=== PATIENT | female | born 1995 | race Caucasian/White ===

== ENCOUNTER 2018-05-30 17:32 | Emergency (ER) | payer OTHER ==
[2018-05-30 19:12] LABS: ABSOLUTE BASOPHIL COUNT 0 /CUMM (0.0-0.2); ABSOLUTE EOSINOPHIL COUNT 0 /CUMM (0.0-0.7); ABSOLUTE GRANULOCYTE CT 7.5 /CUMM (1.4-6.5); ABSOLUTE LYMPH COUNT 1.1 /CUMM (1.2-3.4); ABSOLUTE MONOCYTE COUNT 0.7 /CUMM (0.10-0.60); BASOPHIL % 0.4 % (0.0-2.0); EOSINOPHIL % 0.3 % (0-5); GRANULOCYTE % 79.9 % (42.2-75.2); HEMATOCRIT 37.5 % (37-47); MEAN CORPUSCULAR HGB 29.5 PG (27.0-31.0); MEAN CORPUSCULAR HGB CONC 33.8 G/DL (33.0-37.0); MEAN CORPUSCULAR VOLUME 87.2 FL (81.0-99.0); MEAN PLATELET VOLUME 8.5 FL (7.4-10.4); PLATELET COUNT 179 /CUMM (130-400); RBC DISTRIBUTION WIDTH 13.1 % (11.5-14.5); WHITE BLOOD CELL COUNT 9.4 /CUMM (4.8-10.8)
--- NOTE | 2018-05-30 21:04 | CT SCAN REPORT ---
EXAMINATION: CT ABDOMEN AND PELVIS WITH CONTRAST CLINICAL INFORMATION: Right lower quadrant pain. Concern for appendicitis. COMPARISON: None TECHNIQUE: Multidetector volumetric imaging was performed of the abdomen and pelvis following IV administration of 95 mL of Optiray 320 intravenous contrast. Sagittal and coronal reformatted images were obtained on the technologist's workstation. DLP: 328 mGy-cm FINDINGS: Visualized lung bases are well aerated. The liver demonstrates minimal size, contour and attenuation. No intrahepatic biliary ductal dilatation. The gallbladder is decompressed and therefore not accurately evaluated. The pancreas, spleen and adrenal glands are unremarkable. The kidneys demonstrate symmetric enhancement without hydronephrosis. Normal caliber loops of small and large bowel. The appendix is normal in caliber without focal periappendiceal stranding (best appreciated on coronal image 44/82). Tiny fat-containing umbilical hernia. The bladder is underdistended and therefore not accurately characterize. IUD in expected orientation within the pelvis. A small amount of free pelvic fluid, nonspecific but potentially physiologic. No gross pelvic lymphadenopathy. No acute osseous abnormality. IMPRESSION: No CT evidence for acute intra-abdominal or pelvic pathology. The appendix is normal.
--- NOTE | 2018-05-30 22:02 | ED GENERAL ADULT ---
History of Present Illness General Chief Complaint: Fever Stated Complaint: FEVER, ABD PAIN Source: patient Exam Limitations: no limitations Vital Signs & Intake/Output Vital Signs & Intake/Output Vital Signs Date Time Temp Pulse Resp B/P B/P Pulse O2 O2 Flow FiO2 Mean Ox Delivery Rate 05/31 0000 99.0 90 18 108/62 98 Room Air 05/30 2055 99.4 91 18 101/60 97 Room Air 05/30 1859 Room Air 05/30 1755 101.7 120 16 101/72 97 Room Air ED Intake and Output 05/31 0000 05/30 1200 Intake Total 1000 Output Total Balance 1000 Intake, IV 1000 Allergies Coded Allergies: doxycycline (Intermediate, ITCHING 05/30/18) hydromorphone (From DILAUDID) (Intermediate, GI DISTRESS 05/30/18) Reconcile Medications Ciprofloxacin HCl (Cipro) 500 MG TABLET 1 TAB PO BID UTI Dicyclomine HCl 20 MG TABLET 1 TAB PO Q6-8P PRN abd pain Naproxen (Naprosyn) 500 MG TABLET 1 TAB PO BID PRN abd pain Ondansetron (Zofran Odt) 4 MG TAB.RAPDIS 1 TAB SL TID PRN nausea Triage Note: PT REFERRED TO ED FROM [facility] FOR EVAL OF RLQ PAIN, FEVER, NAUSEA AND BODY ACHES. STILL HAS APPENDIX. STATES RLQ PAIN THERE FOR PAST WEEK, BUT SEVERE LAST NIGHT. PULSE 120 IN TRIAGE, TEMP 101.7 TYMPANIC. Triage Nurses Notes Reviewed? yes Onset: Gradual Duration: day(s): Timing: constant : No Patient currently breastfeeds: No HPI: 22-year-old female with a history of gastroparesis presenting with right lower quadrant pain 6 days. Patient reports sharp right lower quadrant pain that radiates to her abdomen. Patient states that the pain was initially intermittent, but has been constant and severe since last night. She has been febrile with a T-max of 101.7F. Pain has been associated with nausea and vomiting. She also notes that she has had urinary frequency/urgency, but no dysuria or hematuria. No vaginal bleeding or discharge. Denies diarrhea, constipation, melena, hematochezia. She was seen and evaluated at an urgent care earlier today, referred in for rule out appendicitis. (Susan GUAJARDO,Brianda) Past History Travel History Traveled to [place] past 21 day No Medical History Any Pertinent Medical History? see below for history Respiratory: SEASONAL ALLERGIES Surgical History Surgical History: non-contributory Psychosocial History What is your primary language Occitan Tobacco Use: Never used Family History Hx Contributory? No (Brianda Saavedra) Review of Systems Review of Systems Constitutional: Reports: see HPI. EENTM: Reports: no symptoms. Respiratory: Reports: no symptoms. Cardiovascular: Reports: no symptoms. GI: Reports: see HPI. Genitourinary: Reports: see HPI. Musculoskeletal: Reports: no symptoms. Skin: Reports: no symptoms. Neurological/Psychological: Reports: no symptoms. Hematologic/Endocrine: Reports: no symptoms. Immunologic/Allergic: Reports: no symptoms. All Other Systems: Reviewed and Negative (Brianda Saavedra) Physical Exam Physical Exam General Appearance: well developed/nourished, no apparent distress, alert, awake Comments: Gen.: Well-nourished, well-developed, no acute distress, nontoxic-appearing Head: Normocephalic, atraumatic. Eyes: Normal inspection bilaterally Ears: Normal inspection bilaterally Nose: Normal inspection Neck: Normal inspection Lungs: clear to auscultation bilaterally, normnal breath sounds Heart: regular rate and rhythm Abdomen: soft, nondistended, normal bowel sounds, tender to palpation across the right lower quadrant, right upper quadrant, and epigastrium, no rebound or guarding Back: No CVA tenderness Extremities: Normal inspection Neurologic: alert and oriented x3, steady gait Skin: warm and dry Psychiatric: Normal mood and affect, no apparent delusions or hallucinations, behavior appropriate Core Measures ACS in differential dx? No CVA/TIA Diagnosis: No Sepsis Present: No Sepsis Focused Exam Completed? No (Brianda Saavedra) Progress Differential Diagnoses I considered the following diagnoses in my evaluation of the patient: [Gastritis versus GERD versus biliary versus appendicitis versus UTI versus pyelonephritis versus cervicitis versus PID] Plan of Care: Orders Procedure Date/time Status Add-on Test (ER Only) 05/30 2014 Active CULTURE,URINE 05/30 192 Active C-REACTIVE PROTEIN 05/30 182 Complete URINE 05/30 180 Complete URINALYSIS 05/30 180 Complete LACTIC ACID 05/30 180 Complete COMPREHENSIVE METABOLIC PANEL 05/30 180 Complete CBC WITHOUT DIFFERENTIAL 05/30 180 Complete Laboratory Tests 05/30/18 2103: Lactic Acid Cancelled 05/30/181919: Urine Color YEL, Urine Clarity CLEAR, Urine pH 6.0, Ur Specific [place] 1.025, Urine Protein NEG, Urine Ketones 15 H, Urine Nitrite NEG, Urine Bilirubin NEG, Urine Urobilinogen 0.2, Ur Leukocyte Esterase SMALL H, Ur Microscopic SEDIMENT EXAMINED, Urine RBC RARE, Urine WBC 5-10 H, Ur Epithelial Cells FEW, Urine Bacteria MOD H, Urine Mucus FEW, Urine Hemoglobin NEG, Urine Glucose NEG, Urine Test NEGATIVE 05/30/18 1825: Anion Gap 8, Estimated GFR > 60, BUN/Creatinine Ratio 18.6, Glucose 91, Lactic Acid 0.6 L, Calcium 9.0, Total Bilirubin 0.4, AST 16, ALT 32, Alkaline Phosphatase 62, C-Reactive Prot, Quant 4.8 H, Total Protein 6.7, Albumin 3.8, Globulin 2.9, Albumin/Globulin Ratio 1.3, CBC w Diff NO MAN DIFF REQ, RBC 4.30, MCV 87.2, MCH 29.5, MCHC 33.8, RDW 13.1, MPV 8.5, Gran % 79.9 H, Lymphocytes % 11.8 L, Monocytes % 7.6, Eosinophils % 0.3, Basophils % 0.4, Absolute Granulocytes 7.5 H, Absolute Lymphocytes 1.1 L, Absolute Monocytes 0.7 H, Absolute Eosinophils 0, Absolute Basophils 0 Microbiology 05/30 1920 URINE ROUT: Urine Culture - RES GRAM NEGATIVE RODS CT abdomen and pelvis IMPRESSION: No CT evidence for acute intra-abdominal or pelvic pathology. The appendix is normal. Labs show elevation in CRP to 4.8, otherwise unremarkable. WBC and lactic acid are within normal limits. UA is equivocal for infection, there are some WBCs and bacteria, sample was a clean-catch. Given the patient is having urinary urgency and frequency will cover for UTI. Given that she has been febrile will cover for pyelonephritis, although she has had no CVA tenderness. Will cover with Rx ciprofloxacin. Patient's parents expressed continued concern for appendicitis. 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 At this time surgery does not feel the patient's exam is consistent with appendicitis, additionally she has a negative CT and normal WBC to further exclude the diagnosis of appendicitis. It is possible that she may have underlying IBS with acute viral syndrome such as viral gastritis. Will give Rx Zofran, naproxen, and Bentyl. She is tolerating p.o. intake after Zofran without difficulty. Given contact information to follow-up with GI. Counseled on supportive care and strict return precautions. Initial ED EKG: none (Brianda Saavedra) Departure Departure Disposition: HOME OR SELF CARE Condition: Stable Clinical Impression Primary Impression: Abdominal pain Secondary Impressions: Fever, UTI (urinary tract infection) Referrals: Alicia Okeefe MD Patient Has No Primary Care Dr (PCP/Family) Additional Instructions: Take ciprofloxacin as prescribed. He will receive a phone call if your urine culture has positive growth. If you do not receive a phone call in 2-3 days you should call the emergency department at [phone] to inquire about the results, if the culture is negative you should stop her antibiotics. Use Zofran as needed for nausea. Use dicyclomine and naproxen as needed for abdominal pain. Follow-up with a primary care provider and gastroenterology for further evaluation. Return to the emergency department for any new or worsening symptoms. Departure Forms: Customer Survey General Discharge Information Prescriptions: Current Visit Scripts Ondansetron (Zofran Odt) 1 TAB SL TID PRN nausea #20 TAB Naproxen (Naprosyn) 1 TAB PO BID PRN abd pain #60 TAB Dicyclomine HCl 1 TAB PO Q6-8P PRN abd pain #30 TAB Ciprofloxacin HCl (Cipro) 1 TAB PO BID #14 TAB (Brianda Saavedra) PA/CUT OFF MACHINE OPERATOR Co-Sign Statement Statement: ED Attending supervision documentation- [x] I saw and evaluated the patient. I have also reviewed all the pertinent lab results and diagnostic results. I agree with the findings and the plan of care as documented in the PA's/CUT OFF MACHINE OPERATOR's documentation. [x] I have reviewed the ED Record and agree with the PA's/CUT OFF MACHINE OPERATOR's documentation. [] Additions or exceptions (if any) to the PAs/CUT OFF MACHINE OPERATOR's note and plan are summarized below: [] (Jacobo Daniels DO) Critical Care Note Critical Care Note Critical Care Time: non-applicable (Brianda Saavedra)
--- NOTE | 2018-05-30 22:56 | Cons- General Surgery ---
Tresa Welsh 05/30/18 2255: General Information and HPI Consulting Request Date of Consult: 05/30/18 Requested By: CASANDRA Davis Reason for Consult: rlq pain History of Present Illness: 22yoF presents to ED with c.o rlq abdominal pain worsening over last 8-9days, though acutely worsened this morning. Has had similar pain intermittently over last 6 years, and has had numerous MD visits for this (GI, Surgery, [facility], etc). [place] sharp pain at rlq at 2am this am, and though improved throughout the day, has not gone away. Denies emesis, though admits to some nausea. Tmax of 101.7. Last meal this pm, last BM this am, passing flatus regularly. Denies cp/sob. Allergies/Medications Allergies: Coded Allergies: doxycycline (Intermediate, ITCHING 05/30/18) hydromorphone (From DILAUDID) (Intermediate, GI DISTRESS 05/30/18) Past History Medical History Respiratory: SEASONAL ALLERGIES Gastrointestinal: chronic undiagnosed abd pain Surgical History Pertinent Surgical History: tonsillectomy, wisdom teeth extraction, axillary cyst excision Exam & Diagnostic Data Vital Signs and I&O Vital Signs Date Time Temp Pulse Resp B/P B/P Pulse O2 O2 Flow FiO2 Mean Ox Delivery Rate 05/30 2055 99.4 91 18 101/60 97 Room Air 05/30 1859 Room Air 05/30 1755 101.7 120 16 101/72 97 Room Air Physical Exam: gen- nad card-s1s2 rrr pulm-ctab abd- generalized ttp thoughout, no r/g, normoactive bs throughout ect- calves soft nt Last 24 Hours of Labs: Laboratory Tests 05/30 05/30 2103 1920 Chemistry Lactic Acid Cancelled Urines Urine Color (YEL,AMB,STR) YEL Urine Clarity (CLEAR) CLEAR Urine pH (5.0 - 8.0) 6.0 Ur Specific [place] (1.001 - 1.035) 1.025 Urine Protein (NEG,<30 MG/DL) NEG Urine Ketones (NEG) 15 H Urine Nitrite (NEG) NEG Urine Bilirubin (NEG) NEG Urine Urobilinogen (0.1 - 1.0 EU/dl) 0.2 Ur Leukocyte Esterase (NEG) SMALL H Ur Microscopic SEDIMENT EXAMINED Urine RBC (0 - 5 /HPF) RARE Urine WBC (0 - 2 /HPF) 5-10 H Ur Epithelial Cells (NONE,FEW) FEW Urine Bacteria (NEG/NONE) MOD H Urine Mucus (FEW,NONE) FEW Urine Hemoglobin (NEG) NEG Urine Glucose (N MG/DL) NEG Urine Test NEGATIVE 05/30 1825 Chemistry Sodium (137 - 145 mmol/L) 135 L Potassium (3.5 - 5.1 mmol/L) 3.7 Chloride (98 - 107 mmol/L) 103 Carbon Dioxide (22 - 30 mmol/L) 24 Anion Gap (5 - 16) 8 BUN (7 - 17 mg/dL) 13 Creatinine (0.5 - 1.0 mg/dL) 0.7 Estimated GFR (>60 ml/min) > 60 BUN/Creatinine Ratio (7 - 25 %) 18.6 Glucose (65 - 99 mg/dL) 91 Lactic Acid (0.7 - 2.1 mmol/L) 0.6 L Calcium (8.4 - 10.2 mg/dL) 9.0 Total Bilirubin (0.2 - 1.3 mg/dL) 0.4 AST (14 - 36 U/L) 16 ALT (9 - 52 U/L) 32 Alkaline Phosphatase (<127 U/L) 62 C-Reactive Prot, Quant (<1.0 mg/dL) 4.8 H Total Protein (6.3 - 8.2 g/dL) 6.7 Albumin (3.5 - 5.0 g/dL) 3.8 Globulin (1.9 - 4.2 gm/dL) 2.9 Albumin/Globulin Ratio (1.1 - 2.2 %) 1.3 Hematology CBC w Diff NO MAN DIFF REQ WBC (4.8 - 10.8 /CUMM) 9.4 RBC (4.20 - 5.40 /CUMM) 4.30 Hgb (12.0 - 16.0 G/DL) 12.7 Hct (37 - 47 %) 37.5 MCV (81.0 - 99.0 FL) 87.2 MCH (27.0 - 31.0 PG) 29.5 MCHC (33.0 - 37.0 G/DL) 33.8 RDW (11.5 - 14.5 %) 13.1 Plt Count (130 - 400 /CUMM) 179 MPV (7.4 - 10.4 FL) 8.5 Gran % (42.2 - 75.2 %) 79.9 H Lymphocytes % (20.5 - 51.1 %) 11.8 L Monocytes % (1.7 - 9.3 %) 7.6 Eosinophils % (0 - 5 %) 0.3 Basophils % (0.0 - 2.0 %) 0.4 Absolute Granulocytes (1.4 - 6.5 /CUMM) 7.5 H Absolute Lymphocytes (1.2 - 3.4 /CUMM) 1.1 L Absolute Monocytes (0.10 - 0.60 /CUMM) 0.7 H Absolute Eosinophils (0.0 - 0.7 /CUMM) 0 Absolute Basophils (0.0 - 0.2 /CUMM) 0 Imaging Results: SERVICE DATE: 05/30/18 EXAM TYPE: CAT - CT ABD & PELVIS W IV CONTRAST EXAMINATION: CT ABDOMEN AND PELVIS WITH CONTRAST CLINICAL INFORMATION: Right lower quadrant pain. Concern for appendicitis. COMPARISON: None TECHNIQUE: Multidetector volumetric imaging was performed of the abdomen and pelvis following IV administration of 95 mL of Optiray 320 intravenous contrast. Sagittal and coronal reformatted images were obtained on the technologist's workstation. DLP: 328 mGy-cm FINDINGS: Visualized lung bases are well aerated. The liver demonstrates minimal size, contour and attenuation. No intrahepatic biliary ductal dilatation. The gallbladder is decompressed and therefore not accurately evaluated. The pancreas, spleen and adrenal glands are unremarkable. The kidneys demonstrate symmetric enhancement without hydronephrosis. Normal caliber loops of small and large bowel. The appendix is normal in caliber without focal periappendiceal stranding (best appreciated on coronal image 44/82). Tiny fat-containing umbilical hernia. The bladder is underdistended and therefore not accurately characterize. IUD in expected orientation within the pelvis. A small amount of free pelvic fluid, nonspecific but potentially physiologic. No gross pelvic lymphadenopathy. No acute osseous abnormality. IMPRESSION: No CT evidence for acute intra-abdominal or pelvic pathology. The appendix is normal. Assessment/Plan Assessment/Plan A- 22yoF with 1+week history of abdominal pain, acutely worsening at 2am this morning in RLQ, with 6year history of similar intermittent abd pain, with CT scan negative for appendicitis, though does have left shift without leukocytosis and fever earlier this evening. No clear acute surgical process at this time, therefore no surgical intervention necessary at this time. P- dw Dr. Marie. no acute need for surgical intervention at this time. Does not require surgical stay in the hospital. Thank you for this consult. Problem List: 1. Abdominal pain Consult Acknowledgment - Thank you for your consult request. Frank Desean MARIA 05/31/18 1416: General Information and HPI Allergies/Medications Home Med List: Ciprofloxacin HCl (Cipro) 500 MG TABLET 1 TAB PO BID UTI Dicyclomine HCl 20 MG TABLET 1 TAB PO Q6-8P PRN abd pain Naproxen (Naprosyn) 500 MG TABLET 1 TAB PO BID PRN abd pain Ondansetron (Zofran Odt) 4 MG TAB.RAPDIS 1 TAB SL TID PRN nausea Assessment/Plan Consult Acknowledgment - Thank you for your consult request. Attending MD Review Statement Attending Statement Attending MD Statement: discuss w/resident/PA/CLOTH WORKER, agreed w/resident/PA/CLOTH WORKER, reviewed EMR data (avail), reviewed images
[2018-05-30] MEDS ORDERED: NAPROSYN500 M1 PO (23:49)
[2018-05-30] MEDS ORDERED: ZOFRAN ODT4 M1 SL (23:49)
[2018-05-30] MEDS ORDERED: CIPRO500 M1 PO (23:49)
[2018-05-30] MEDS ORDERED: DICYCLOMINE HCL20 M1 PO (23:49)
[2018-05-31] VITALS: BP 108/62
== END 2018-05-31 00:34 ==
LOC: ERH 17:32
PROVIDERS: Physician Assistant
DX: N39.0 Urinary tract infection, site not specified (principal)
CPT/HCPCS: 74177; 81001; 81025; 87086; 96361; 96374; 96375; J0696; J1885; J2405